=== PATIENT | female | born 1970 | race Caucasian/White ===

== ENCOUNTER 2021-12-29 12:00 | Day surgery (SDC) | payer BC ==
[2021-12-29] MEDS ORDERED: [UNRECOGNIZED DRUG - OTHER] PO (15:13)
[2021-12-29] MEDS ORDERED: ESTR1CAP VG (15:13)
[2021-12-29 15:49] LABS: ALBUMIN 3.6 G/DL (3.4-5.0); ALBUMIN/GLOBULIN RATIO 0.9 (1.1-1.5); ALKALINE PHOSPHATASE 53 IU/L (46-116); BLOOD UREA NITROGEN 9 MG/DL (7-18); BUN/CREATININE RATIO 11.3 (6.6-38.0); CALCIUM 9.1 MG/DL (8.5-10.1); CHLORIDE 105 MMOL/L (99-107); PRE OP ALT 21 U/L (30-65); PRE OP ANION GAP 9 (8-16); PRE OP AST 20 U/L (10-37); PRE OP BILIRUB, TOTAL 0.4 MG/DL (0.0-1.0); PRE OP GLUCOSE 103 MG/DL (70-104); PRE OP POTASSIUM 3.8 MMOL/L (3.4-5.1); PRE OP SODIUM 140 MMOL/L (135-145); TOTAL CARBON DIOXIDE 26.4 MMOL/L (24-32); TOTAL PROTEIN 7.6 G/DL (6.4-8.2); eGFR 75 ML/MIN
[2021-12-29 15:51] LABS: BASOPHILS % (AUTO) 0.5 % (0-1); EOSINOPHILS # (AUTO) 0.1 X10'3 (0-0.9); EOSINOPHILS % (AUTO) 1.2 % (0-6); LYMPHOCYTES # (AUTO) 2.5 X10'3 (1.1-4.8); LYMPHOCYTES % (AUTO) 40.7 % (21-51); MEAN CORPUSCULAR HEMOGLOBIN 30.1 PG (27.0-31.0); MEAN CORPUSCULAR HGB CONC 33.2 g/dL (33.0-36.5); MEAN CORPUSCULAR VOLUME 90.7 FL (78-98); MONOCYTES # (AUTO) 0.6 X10'3 (0-0.9); MONOCYTES % (AUTO) 10.1 % (2-12); NEUTROPHILS # (AUTO) 2.9 X10'3 (1.8-7.7); NEUTROPHILS % (AUTO) 47.5 % (42-75); PRE OP HEMATOCRIT 39.5 % (35.0-45.0); PRE OP HEMOGLOBIN 13.1 g/dL (12.0-16.0); PRE OP PLATELET COUNT 264 X10'3 (140-440); RED BLOOD COUNT 4.36 X10'6 (4.20-5.60); RED CELL DISTRIBUTION WIDTH 13.3 % (11.5-14.5)
[2021-12-29 16:13] LABS: HEMOGLOBIN A1C 6.1 % (4.5-6.2)
== END 2021-12-29 23:59 | disposition home or self-care (01) ==
LOC: PRE-OP 12:00
PROVIDERS: ATTEND Orthopaedic Surgery
DX: Z01.818 Encounter for other preprocedural examination (principal); M17.11 Unilateral primary osteoarthritis, right knee; E11.9 Type 2 diabetes mellitus without complications; E66.9 Obesity, unspecified; Z86.718 Personal history of other venous thrombosis and embolism; Z86.711 Personal history of pulmonary embolism; Z88.2 Allergy status to sulfonamides; Z79.899 Other long term (current) drug therapy
CPT/HCPCS: 36415; 80053; 83036; 84443; 85025; 87081; 93005

== ENCOUNTER 2022-01-28 05:33 | Inpatient (IN) | payer BC ==
[~2022-01-28] VITALS: Ht 175.3 cm; Wt 97.9 kg
[2022-01-28] VITALS (29 sets, daily range): BP systolic 97–136; BP diastolic 55–83
[~2022-01-28 05:33] MED LIST: ESTR1CAP VG; [UNRECOGNIZED DRUG - OTHER] PO; ceFAZolin inj. 2,000 MG in dextrose 5%-water 100 ML IV ONE; famotidine 20mg tablet PO ONE; ringers solution, lacted 1,000 ML IV SCH; tranexamic acid inj. 1,000 MG in normal saline 100ml IV soln 90 ML IV ONE; vancomycin 1,500 MG in NS 300ml IV soln IV ONE
--- NOTE | 2022-01-28 05:50 | NUR ---
CSM. PULSES PRESENT AND MARKED. PATIENT WATCHED THE VIDEO AND USED THE MUPIROCIN CREAM. EDUCATED PATIENT ON THE INCENTIVE SPIROMETER AND ITS IMPORTANCE
[2022-01-28] MEDS ORDERED: ketorolac trometh. 30mg/ml inj. ONE (06:49)
[2022-01-28] MEDS ORDERED: epiNEPHrine 1 mg/ml inj ONE (06:49)
[2022-01-28] MEDS ORDERED: vancomycin 1,000mg inj ONE (06:50)
[2022-01-28] MEDS ORDERED: morphine 10mg/ml inj. ONE (06:50)
[2022-01-28] MEDS ORDERED: ROPIVAcaine 0.5% (5mg/ml) 30ml vial ONE ×2 (06:50→07:24)
[2022-01-28 06:56] LABS: BASOPHILS % (AUTO) 0.5 % (0-1); EOSINOPHILS # (AUTO) 0.1 X10'3 (0-0.9); EOSINOPHILS % (AUTO) 1.9 % (0-6); LYMPHOCYTES # (AUTO) 1.9 X10'3 (1.1-4.8); LYMPHOCYTES % (AUTO) 38.8 % (21-51); MEAN CORPUSCULAR HEMOGLOBIN 31.3 PG (27.0-31.0); MEAN CORPUSCULAR HGB CONC 34.2 g/dL (33.0-36.5); MEAN CORPUSCULAR VOLUME 91.4 FL (78-98); MEAN PLATELET VOLUME 8.9 FL (7.4-10.4); MONOCYTES # (AUTO) 0.5 X10'3 (0-0.9); MONOCYTES % (AUTO) 10.5 % (2-12); NEUTROPHILS # (AUTO) 2.3 X10'3 (1.8-7.7); NEUTROPHILS % (AUTO) 48.3 % (42-75); PRE OP HEMATOCRIT 31.7 % (35.0-45.0); PRE OP PLATELET COUNT 208 X10'3 (140-440); RED BLOOD COUNT 3.46 X10'6 (4.20-5.60); RED CELL DISTRIBUTION WIDTH 12.8 % (11.5-14.5)
[2022-01-28 06:58] LABS: CLARITY,URINE SLIGHTLY CLOUDY (Clear); COLOR,URINE YELLOW (Yellow); GLUCOSE, URINE NEGATIVE (Neg); KETONES,URINE NEGATIVE (Neg); LEUKOCYTE ESTERASE ,URINE TRACE (Neg); NITRITES, URINE NEGATIVE (Neg); OCCULT BLOOD,URINE TRACE-INTACT (Neg); PH,URINE 5.5 (4.8-8.0); PROTEIN,URINE NEGATIVE (Neg); UROBILINOGEN,URINE 0.2 E.U/dL (0.2-1.0)
[2022-01-28 07:00] LABS: PRE OP HEMOGLOBIN 10.8 g/dL (12.0-16.0)
[2022-01-28 07:08] LABS: UA COLLECTION TYPE CLN CATCH MIDSTREAM
[2022-01-28 07:11] LABS: BACTERIA,URINE FEW /HPF (Neg); RBC,URINE NONE SEEN /HPF (0-2); SQUAMOUS EPITHELIAL CELL,UR MODERATE /LPF (FEW); WBC,URINE 0-4 /HPF (0-4)
[2022-01-28 07:19] LABS: ALBUMIN 2.6 G/DL (3.4-5.0); ALBUMIN/GLOBULIN RATIO 0.8 (1.1-1.5); ALKALINE PHOSPHATASE 38 IU/L (46-116); BLOOD UREA NITROGEN 14 MG/DL (7-18); BUN/CREATININE RATIO 19.2 (6.6-38.0); CALCIUM 7.9 MG/DL (8.5-10.1); CHLORIDE 108 MMOL/L (99-107); CREATININE 0.73 MG/DL (0.40-0.90); PRE OP ALT 13 U/L (30-65); PRE OP ANION GAP 14 (8-16); PRE OP AST 14 U/L (10-37); PRE OP BILIRUB, TOTAL 0.2 MG/DL (0.0-1.0); PRE OP GLUCOSE 107 MG/DL (70-104); PRE OP POTASSIUM 4.4 MMOL/L (3.4-5.1); PRE OP SODIUM 142 MMOL/L (135-145); TOTAL CARBON DIOXIDE 20.5 MMOL/L (24-32); TOTAL PROTEIN 5.9 G/DL (6.4-8.2); eGFR 83 ML/MIN
[2022-01-28] MEDS ORDERED: cloNIDine hcl/PF 100mcg/ml inj ONE (07:23)
[2022-01-28] MEDS ORDERED: tetracaine 1% (10mg/ml) pres. free inj. ONE (07:24)
[2022-01-28] MEDS ORDERED: MIDAZolam 1mg/ml 10ml vial ONE (07:27)
[2022-01-28] MEDS ORDERED: fentaNYL/PF 50MCG/1 ML 2ML syringe ONE (07:27)
[2022-01-28] MEDS ORDERED: proCHLORperazine 10 MG/2 ml inj IV PRN (08:05)
[2022-01-28] MEDS ORDERED: morphine 2 MG/ML inj. syringe IV PRN (08:05)
[2022-01-28] MEDS ORDERED: meperidine/PF 25mg/ml syringe IV PRN ×3 (08:05)
[2022-01-28] MEDS ORDERED: ringers solution, lacted 1,000 ML IV SCH (08:05)
[2022-01-28] MEDS ORDERED: ROPIVAcaine 0.2% (10 MG/5 ML) BOLUS INJECTION ADDCANAL PRN (08:05)
[2022-01-28] MEDS ORDERED: morphine 4 MG/ML inj SYRINge IV PRN (08:05)
[2022-01-28] MEDS ORDERED: ROPIVAcaine 0.2%/PF PUMP/bolus 545 ML ADDCANAL SCH (08:05)
[2022-01-28] MEDS ORDERED: ondansetron/PF 4mg/2ml inj IV PRN ×2 (08:05→10:35)
[2022-01-28] MEDS ORDERED: bisacodyl 10mg suppository rectal RC PRN (10:35)
[2022-01-28] MEDS ORDERED: magnesium hydroxide 30ml (MOM) UD suspension PO PRN (10:35)
[2022-01-28] MEDS ORDERED: tranexamic acid inj. 980 MG in normal saline 100ml IV soln 100 ML IV ONE ×2 (10:35→16:15)
[2022-01-28] MEDS ORDERED: HYDROmorphone 1 mg/ml syringe IV PRN (10:35)
[2022-01-28] MEDS ORDERED: naloxone 0.4 mg/ml inj IV PRN (10:35)
[2022-01-28] MEDS ORDERED: oxyCODONE IR 5mg (immed. release) tablet PO PRN ×2 (10:35)
[2022-01-28] MEDS ORDERED: HYDROmorphone inj. 0.5 MG/0.5 ML DISP.SYRIN IV PRN (10:35)
[2022-01-28] MEDS ORDERED: diphenhydrAMINE 25mg capsule PO PRN ×2 (10:35)
[2022-01-28] MEDS ORDERED: acetaminophen 325mg tablet PO PRN (10:35)
[2022-01-28] MEDS ORDERED: propofol inj 20 ML IV ONE (10:39)
--- NOTE | 2022-01-28 10:41 | NUR ---
Received from OR via SURGICAL BED , accompanied by Anesthesiologist ROSE and report given by Anesthesiolgist. PATIENT WITH NERVE BLOCK SITE TO RIGHT LE KNEE WRAP AND POWDER PACK PRESENT. VSS. 20G PIV IN LEFT AC. POSITIONAL BUT WORKING. HDEZ CATHETER IN PLACE. SCDS DONNED UPON ARRIVAL AND POSITIONED TO COMFORT. Addendum: 01/28/22 at 1056 by Cristofer Dan RN, RN Amended: Links added.
--- NOTE | 2022-01-28 13:43 | NUR ---
Patient in room PAS IN 900. I have received report from YONATAN FINCH and had the opportunity to ask questions and assume patient care.
--- NOTE | 2022-01-28 13:51 | NUR ---
REPORT GIVEN AND ALL QUESTIONS ANSWERED. PATIENT TRANSFERRED TO SURG/ORTHO PCU ICU. LABELED BELONGINGS PRESENT AND DELIVERED TO ROOM. RN PRESENT ALL CRITERIA FOR TRANSFER BACK TO THE FLOOR HAS BEEN ACHIEVED. VSS. PAIN AT A TOLERABLE LEVEL. BED LOW, CALL LIGHT PRESENT AND 2 RAILS DOWN. RN AWARE THAT PATIENT HAS ARRIVED. TO ACCEPT CARE OF PATIENT.JOSETTE BOWMAN AWARE PATIENT HAS ARRIVED. Addendum: 01/28/22 at 1421 by Cristofer Florian - JOSETTE FINCH Amended: Links added.
--- NOTE | 2022-01-28 15:50 | NUR ---
WAITING FOR TRANEXAMIC FROM PHARMACY.
[2022-01-28] MEDS ORDERED: ceFAZolin/D5W- 1GM premix 50 ML IV SCH (16:00)
[2022-01-28] MEDS: acetaminophen 325mg tablet PO SCH ×2 (16:32→20:00)
[2022-01-28] MEDS: gabapentin 300mg capsule PO SCH ×2 (16:32→20:24)
[2022-01-28] MEDS: potassium cl 20mEq in 1/2 NS 1,000 ML IV SCH ×2 (16:33→18:35)
[2022-01-28] MEDS: ceFAZolin/D5W- 1GM premix 50 ML IV SCH (17:42)
--- NOTE | 2022-01-28 18:05 | NUR ---
Problems reprioritized. Patient report given, questions answered & plan of care reviewed with Jaky Starkey rn.
[2022-01-28] MEDS ORDERED: ESTRADIOL/PROGESTERO VG (19:23)
[2022-01-28] MEDS ORDERED: vancomycin/NS 1 GM ADD-VANTAGE 250 ML IV SCH (20:00)
[2022-01-28] MEDS ORDERED: sennosides 8.6mg tablet PO SCH (21:00)
[2022-01-29] MEDS: ceFAZolin/D5W- 1GM premix 50 ML IV SCH ×2 (00:54→07:48)
[2022-01-29] MEDS: acetaminophen 325mg tablet PO SCH ×2 (02:16→07:48)
[2022-01-29] MEDS: potassium cl 20mEq in 1/2 NS 1,000 ML IV SCH (03:59)
[2022-01-29 06:00] VITALS: BP 155/89
[2022-01-29] MEDS: gabapentin 300mg capsule PO SCH (07:49)
[2022-01-29] MEDS ORDERED: PROGESTERONE VG SCH ×2 (08:00)
[2022-01-29] MEDS ORDERED: [UNRECOGNIZED DRUG - OTHER] VG SCH (08:00)
[2022-01-29] MEDS ORDERED: [UNRECOGNIZED DRUG - MIXTURE] PO SCH (08:00)
[2022-01-29] MEDS ORDERED: ESTRADIOL VG SCH ×2 (08:00)
[2022-01-29] MEDS ORDERED: enoxaparin 40mg/0.4ml syringe SQ SCH (08:00)
[2022-01-29 10:00] VITALS: BP 129/50
[2022-01-29] MEDS ORDERED: HYDROmorphone 2mg tablet PO ONE (11:00)
--- NOTE | 2022-01-29 11:55 | NUR ---
discharge instructions given to patient. waiting downstairs in car. transferred via w/c with ice packs and belongings.
[2022-01-29] MEDS ORDERED: celeCOXIB 100mg capsule PO SCH (20:00)
[2022-01-30] MEDS ORDERED: acetaminophen 325mg tablet PO PRN (10:35)
== END 2022-01-29 12:00 | disposition home or self-care (01) | DRG 470 ==
LOC: PAS IN 05:33 → EDSTATUS 08:30 → ORTHO 4S 14:07
PROVIDERS: ADMIT Orthopaedic Surgery; ATTEND Orthopaedic Surgery
PROC: 3E0T3BZ Introduction of Anesthetic Agent into Peripheral Nerves and Plexi, Percutaneous Approach (ICD-10-PCS; 2022-01-28)
PROC: 3E0T33Z Introduction of Anti-inflammatory into Peripheral Nerves and Plexi, Percutaneous Approach (ICD-10-PCS; 2022-01-28)
PROC: 0SRC0J9 Replacement of Right Knee Joint with Synthetic Substitute, Cemented, Open Approach (ICD-10-PCS; principal; 2022-01-28 07:42)
DX: M17.11 Unilateral primary osteoarthritis, right knee (principal); Z20.822 Contact with and (suspected) exposure to COVID-19; E11.9 Type 2 diabetes mellitus without complications; E66.9 Obesity, unspecified; Z68.31 Body mass index [BMI] 31.0-31.9, adult
CPT/HCPCS: Z7506; Z7508; 36415; 73560; 80053; 81001; 82948; 85025; 87088; 97116; 97161; 97530; A4215; A7000; C1713; C1758; C1776; C9250; G0378; J0171; J0690; J0735; J1170; J1650; J1885; J2250; J2274; J2405; J2704; J2795; J3010; J3370; J3480; J3490; J7040; J7060; J7120